=== PATIENT | female | born 1990 | race Caucasian/White ===

== ENCOUNTER 2017-02-03 20:34 | Emergency (ER) | payer OTHER ==
[2017-02-03] MEDS ORDERED: HYDROcod/ACETAM 5/325 MG TABLET PO STA (21:51)
[2017-02-03] MEDS ORDERED: HYDROcod/ACETAM 5/325 MG TABLET ONE (21:54)
== END 2017-02-03 22:04 | disposition home or self-care (01) ==
DX: S62.615A Displaced fracture of proximal phalanx of left ring finger, initial encounter for closed fracture (principal); W19.XXXA Unspecified fall, initial encounter; Y93.51 Activity, roller skating (inline) and skateboarding; Y92.410 Unspecified street and highway as the place of occurrence of the external cause
CPT/HCPCS: 29130; 73130; 99283; A9270

== ENCOUNTER 2018-05-25 18:07 | Emergency (ER) | payer OTHER ==
[2018-05-25 18:16] VITALS: BP 102/71
== END 2018-05-25 19:55 | disposition left against medical advice (07) ==
LOC: ED 18:07
DX: Z53.21 Procedure and treatment not carried out due to patient leaving prior to being seen by health care provider (principal)

== ENCOUNTER 2018-07-31 12:13 | Outpatient (CLI) | payer OTHER ==
[2018-07-31 12:36] LABS: BASOPHILS # (AUTO) 0.1 10^3/uL (0.0-0.1); BASOPHILS % (AUTO) 0.8 %; EOSINOPHILS # (AUTO) 0.1 10^3/uL (0.0-0.7); HGB - HEMOGLOBIN 15.1 g/dL (12.0-16.0); LYMPHOCYTES # (AUTO) 1.6 10^3/uL (1.5-3.5); LYMPHOCYTES % (AUTO) 22.8 %; MEAN CORPUSCULAR HEMOGLOBIN 30.4 pg (27.0-31.0); MEAN CORPUSCULAR HGB CONC 35.4 g/dL (32.0-36.0); MEAN CORPUSCULAR VOLUME 85.8 fL (81.0-99.0); MONOCYTES # (AUTO) 0.5 10^3/uL (0.0-1.0); MONOCYTES % (AUTO) 6.6 %; NEUTROPHILS # (AUTO) 4.9 10^3/uL (1.5-6.6); NEUTROPHILS % (AUTO) 67.8 %; PLT - PLATELET COUNT 203 10^3/uL (130-450); RED BLOOD COUNT 4.97 10^6/uL (4.20-5.40); RED CELL DISTRIBUTION WIDTH 13.1 % (12.0-15.0); WHITE BLOOD COUNT 7.2 x10^3/uL (4.8-10.8)
[2018-07-31] MEDS ORDERED: IOPAMIDOL-300 50 ML VIAL ONE (12:44)
[2018-07-31] MEDS ORDERED: IOPAMIDOL-300 100 ML VIAL ONE (12:44)
[2018-07-31 12:54] LABS: ALBUMIN/GLOBULIN RATIO 1.6 (1.0-2.2); ALKALINE PHOSPHATASE 58 IU/L (42-121); ALT ALANINE AMINOTRANSFERASE 13 IU/L (10-60); AST ASPARTATE AMINOTRANSFERASE 13 IU/L (10-42); BILIRUBIN,TOTAL 0.6 mg/dL (0.2-1.0); BUN - BLOOD UREA NITROGEN 13 mg/dL (6-20); CALCIUM 9.7 mg/dL (8.5-10.3); CARBON DIOXIDE - CO2 26 mmol/L (21-32); CHLORIDE 101 mmol/L (101-111); CREATININE 0.8 mg/dL (0.4-1.0); GFR - MDRD 86 (>89); GLUCOSE 98 mg/dL (70-100); SODIUM 136 mmol/L (135-145); TOTAL PROTEIN 8.2 g/dL (6.7-8.2)
[2018-07-31 13:01] LABS: HCG,QUALITATIVE BLOOD NEGATIVE
[2018-07-31] MEDS ORDERED: IOPAMIDOL-300 50 ML VIAL PO ONE (14:04)
[2018-07-31] MEDS ORDERED: IOPAMIDOL-300 100 ML VIAL IVP ONE (14:04)
--- NOTE | 2018-07-31 15:08 | CT Report ---
Reason: PAIN Procedure Date: 07/31/2018 Accession Number: [id number] / [id number] Procedure: CT - Abdomen/Pelvis W/ CPT Code: FULL RESULT: EXAM: CT ABDOMEN AND PELVIS EXAM DATE: 07/31/2018 02:02 PM. CLINICAL HISTORY: Right lower quadrant pain. COMPARISONS: None. TECHNIQUE: Routine helical CT imaging was performed through the abdomen and pelvis. IV contrast: CE. Enteric contrast: No. Reconstructions: Coronal and sagittal. In accordance with CT protocol optimization, one or more of the following dose reduction techniques were utilized for this exam: automated exposure control, adjustment of mA and/or KV based on patient size, or use of iterative reconstructive technique. FINDINGS: Lung Bases: Unremarkable. Liver: Normal. No masses. Gallbladder/Bile Ducts: Unremarkable. Spleen: The spleen is enlarged measuring up to 14.4 cm in length. Pancreas: Normal. Adrenal Glands: Normal. Kidneys: Normal. No masses or hydronephrosis. Peritoneal Cavity/Bowel: Normal. No free fluid, free air or adenopathy. No masses or acute inflammatory process. The appendix is not visualized. Pelvic Organs: Normal. The bladder and visualized pelvic organs are within normal limits. Vasculature: No aneurysms or other significant abnormality. Bones: No significant abnormality. Other: None. IMPRESSION: 1. The appendix is not visualized but there are no secondary signs of acute appendicitis. 2. No bowel obstruction or inflammatory process associated with the bowel. 3. No free air or fluid in the abdomen or pelvis. [facility]
== END 2018-07-31 12:14 | disposition home or self-care (01) ==
LOC: DI 12:13
PROVIDERS: ATTEND Internal Medicine
DX: R10.2 Pelvic and perineal pain (principal); R10.31 Right lower quadrant pain
CPT/HCPCS: 36415; 74177; 80053; 84703; 85025; Q9967

== ENCOUNTER 2018-08-17 10:28 | Outpatient (CLI) | payer OTHER | END 2018-08-17 10:29 | disposition home or self-care (01) | LOC: LAB.R 10:28 | PROVIDERS: ATTEND Obstetrics & Gynecology | DX: N76.0 Acute vaginitis (principal) | CPT/HCPCS: 87480; 87510; 87660 ==

== ENCOUNTER 2019-06-14 14:56 | Outpatient (CLI) | payer OTHER ==
--- NOTE | 2019-06-14 15:57 | XRAY Report ---
Reason: PAIN IN LEFT WRIST Procedure Date: 06/14/2019 Accession Number: [id number] / [id number] Procedure: XR - Wrist 4 View LT CPT Code: FULL RESULT: EXAM: LEFT WRIST RADIOGRAPHY EXAM DATE: 06/14/2019 03:14 PM. CLINICAL HISTORY: PAIN IN LEFT WRIST. COMPARISON: None. TECHNIQUE: 4 views. FINDINGS: Bones: No fracture or focal bony lesion. Joints: No evidence of dislocation. Soft Tissues: No unexpected soft tissue findings. IMPRESSION: No evidence of fracture or dislocation. [facility] The call report notification system was initiated by Dr. Yuri Alejandro at 03:55 PM on 06/14/2019.
== END 2019-06-14 14:57 | disposition home or self-care (01) ==
LOC: DI 14:56
PROVIDERS: ATTEND Internal Medicine
DX: M25.532 Pain in left wrist (principal)

== ENCOUNTER 2020-11-05 19:17 | Outpatient (CLI) | payer OTHER ==
--- NOTE | 2020-11-05 21:36 | Ultrasound Report ---
PROCEDURE: OB First Trimester w/TV INDICATIONS: TEST POSITIVE OUTSIDE/PRIOR DATING DATA: Last menstrual period (LMP): 10/04/2020. LMP-based estimated date of delivery (RAYO): 07/11/2021. TECHNIQUE: Real-time scanning was performed of the fetus and maternal pelvic organs, with image documentation. Endovaginal scanning was also performed to better visualize the fetus and maternal ovaries. COMPARISON: None FINDINGS: Embryo: A gestational sac is seen in expected position within the uterus measuring 10 x 4 x 7 mm, co mpatible with a gestational age of 5 weeks 3 days. A small yolk sac is noted. Measurement variability in dating: +/- 4 weeks by LMP, +/- 7 days by mean sac diameter (use before 6 weeks gestation if crown-rump length not able to be measured), +/- 5 days by crown-rump length (6-12 weeks gestation). Maternal organs: Ovaries are normal in size bilaterally. A left corpus luteal cyst is seen. Limited images through the kidneys demonstrate no hydronephrosis. IMPRESSION: Intrauterine is seen with gestational sac and yolk sac. Gestational sac size is compatible with a gestational age of 5 weeks 3 days. Findings were conveyed to the ordering provider by the rubber goods assembler at the time of the examination. Reviewed by: Zaid Younger MD on 11/05/2020 9:34 PM PST Approved by: Zaid Younger MD on 11/05/2020 9:34 PM PST Station ID: [id number]
== END 2020-11-05 19:18 | disposition home or self-care (01) ==
LOC: DI 19:17
PROVIDERS: ATTEND Nurse Practitioner Obstetrics & Gynecology
DX: Z32.01 Encounter for pregnancy test, result positive (principal)

== ENCOUNTER 2020-11-10 10:37 | Outpatient (CLI) | payer OTHER | END 2020-11-10 10:38 | disposition home or self-care (01) | LOC: LAB 10:37 | PROVIDERS: ATTEND Obstetrics & Gynecology | DX: Z33.2 Encounter for elective termination of pregnancy (principal); F32.9 Major depressive disorder, single episode, unspecified | CPT/HCPCS: 36415; 82306; 86901 ==

== ENCOUNTER 2020-11-19 16:35 | Outpatient (CLI) | payer OTHER ==
[2020-11-19 18:10] LABS: C. PNEUMONIAE- RESP PCR PANEL NOT DETECTED
== END 2020-11-19 16:36 | disposition home or self-care (01) ==
LOC: LAB 16:35
PROVIDERS: ATTEND Obstetrics & Gynecology
DX: Z01.812 Encounter for preprocedural laboratory examination (principal); O02.1 Missed abortion; Z20.822 Contact with and (suspected) exposure to COVID-19
CPT/HCPCS: 0202U; 36415; 86850; 86900; 86901

== ENCOUNTER 2020-11-20 11:00 | Day surgery (SDC) | payer OTHER ==
[~2020-11-20 11:00] MED LIST: CELECOXIB 100 MG CAPSULE PO ONE; GABAPENTIN 400 MG CAPSULE ONE
[2020-11-20] MEDS ORDERED: LACTATED RINGERS 1,000 ML IV ONE ×2 (11:38→13:34)
[2020-11-20] MEDS ORDERED: SCOPOLAMINE PATCH TOP ONE (11:50)
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
[2020-11-20] MEDS ORDERED: BUPIVACAINE 0.25% PF 30 ML VIAL ONE (12:29)
[2020-11-20] MEDS ORDERED: LIDOCAINE 2%-EPI 1:100000 20 ML MDV ONE (12:29)
[2020-11-20] MEDS ORDERED: fentaNYL 100 MCG/2 ML VIAL ONE ×2 (12:39→14:07)
[2020-11-20] MEDS ORDERED: PROPOFOL 200 MG/20 ML VIAL IVP ONE (12:39)
[2020-11-20] MEDS ORDERED: LIDOCAINE-MPF 2% 5 ML VIAL ONE (12:39)
[2020-11-20] MEDS ORDERED: ONDANSETRON 4 MG/2 ML VIAL ONE ×2 (12:39→14:07)
[2020-11-20] MEDS ORDERED: MIDAZOLAM 2 MG/2 ML VIAL ONE (12:40)
[2020-11-20] MEDS ORDERED: DEXAMETHASONE 4 MG/ML VIAL ONE (12:40)
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
[2020-11-20] MEDS ORDERED: LIDOCAINE 2%-EPI 1:100000 20 ML MDV SUBQ ONE (13:20)
[2020-11-20] MEDS ORDERED: BUPIVACAINE 0.25% PF 30 ML VIAL SUBQ ONE (13:20)
--- NOTE | 2020-11-20 13:34 | OPERATIVE REPORT ---
Operative Report - Other Other Information/Narrative: Date of service: 11/20/20 Preoperative diagnosis: missed at 6w Postoperative diagnosis: same Procedure: suction D&C Surgeon: Grover Delivery Helper: none Anesthesia: General Estimated Blood Loss: 20cc IV Fluids: 800cc Urine output: n/a Counts: correct sponge and instrument Complications: none apparent Disposition: stable to recovery room Prophylaxis: SCD to bilateral lower extremities Specimens: products of conception to pathology Findings: axial uterus Description of Procedure: Patient was brought to the operating room where she underwent general anesthesia. She was placed in low lithotomy in yellow-fin stirrups. A bimanual exam revealed an axial uterus. She was prepped and draped in the usual sterile fashion. A speculum was placed and a single-tooth tenaculum was applied to the anterior lip of the cervis. 10cc of mixed lidocaine and marcaine with epinepherine was injected in divided doses as a paracervical block. The cervix was easily sequentially dilated to 7mm. A suction curette size 7 was used to remove the products of conception after ensuring that suction pressure was less than 40mmHg. The tenaculum was removed. Hemostasis was excellent. The speculum was removed. The blood and betadine were washed from her body. She was returned to the supine position prior to waking.
[2020-11-20] MEDS ORDERED: ATROPINE ABBOJECT 1 MG/10 ML SYRINGE IVP PRN (13:58)
[2020-11-20] MEDS ORDERED: fentaNYL 100 MCG/2 ML VIAL IVP PRN (13:58)
[2020-11-20] MEDS ORDERED: NALOXONE 0.4 MG/ML VIAL IVP PRN (13:58)
[2020-11-20] MEDS ORDERED: ePHEDrine 50 MG/ML VIAL IVP PRN (13:58)
[2020-11-20] MEDS ORDERED: HYDROmorphone 0.5 MG/0.5 ML SYRINGE IVP PRN (13:58)
[2020-11-20] MEDS ORDERED: MORPHINE 2 MG/ML CARPUJECT IVP PRN (13:58)
[2020-11-20] MEDS ORDERED: ONDANSETRON 4 MG/2 ML VIAL IVP PRN (13:58)
[2020-11-20] MEDS ORDERED: LACTATED RINGERS 1,000 ML IV SCH (14:00)
[2020-11-20 14:53] VITALS: BP 102/53
--- NOTE | 2020-11-20 15:30 | ANESTHESIA POST OP EVALUATION ---
Anesthesia Post Eval - Post Anesthesia Eval Vitals: Last Vital Signs Temp 36.6 C 11/20/20 14:45 Pulse 69 11/20/20 14:45 Resp 15 11/20/20 14:45 BP 102/53 L 11/20/20 14:45 Pulse Ox 100 11/20/20 14:45 CV Function Including HR & BP: positive: Stable Pain Control: positive: Satisfactory Nausea & Vomiting: positive: Negative Mental Status: positive: Baseline Respiratory Status: Airway Patent Hydration Status: Satisfactory Anesthesia Complications: positive: None
== END 2020-11-20 11:01 | disposition home or self-care (01) ==
LOC: SDS 11:00
PROVIDERS: ATTEND Obstetrics & Gynecology
PROC: 10D17Z9 Manual Extraction of Products of Conception, Retained, Via Natural or Artificial Opening (ICD-10-PCS; principal; 2020-11-20 12:00)
DX: O02.1 Missed abortion (principal); J45.909 Unspecified asthma, uncomplicated; F32.9 Major depressive disorder, single episode, unspecified; F41.9 Anxiety disorder, unspecified; F43.10 Post-traumatic stress disorder, unspecified; Z87.891 Personal history of nicotine dependence; E66.3 Overweight; Z72.89 Other problems related to lifestyle
CPT/HCPCS: 59820; A9270; J3490; J7120

== ENCOUNTER 2020-11-25 08:00 | Outpatient (CLI) | payer OTHER ==
[2020-11-26 00:45] LABS: TRICHOMONAS VAGINALIS DNA NEGATIVE (NEGATIVE)
== END 2020-11-25 23:59 | disposition home or self-care (01) ==
LOC: LAB.R 08:00
PROVIDERS: ATTEND Obstetrics & Gynecology
DX: Z11.3 Encounter for screening for infections with a predominantly sexual mode of transmission (principal)
CPT/HCPCS: 87491; 87591; 87661

== ENCOUNTER 2021-10-04 19:59 | Emergency (ER) | payer OTHER ==
[2021-10-04] MEDS ORDERED: SODIUM CHLORIDE 0.9% 1,000 ML IV STA (20:32)
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
[2021-10-04 20:50] LABS: BASOPHILS % (AUTO) 0.6 %; EOSINOPHILS # (AUTO) 0.2 10^3/uL (0.0-0.7); EOSINOPHILS % (AUTO) 3.3 %; HCT - HEMATOCRIT 40.1 % (37.0-47.0); LYMPHOCYTES # (AUTO) 1.2 10^3/uL (1.5-3.5); LYMPHOCYTES % (AUTO) 16.8 %; MEAN CORPUSCULAR HEMOGLOBIN 31.3 pg (27.0-31.0); MEAN CORPUSCULAR HGB CONC 34.9 g/dL (32.0-36.0); MEAN CORPUSCULAR VOLUME 89.7 fL (81.0-99.0); MEAN PLATELET VOLUME 10.2 fL (7.9-10.8); MONOCYTES # (AUTO) 0.7 10^3/uL (0.0-1.0); MONOCYTES % (AUTO) 9.6 %; NEUTROPHILS % (AUTO) 69.6 %; PLT - PLATELET COUNT 211 10^3/uL (130-450); RED BLOOD COUNT 4.47 10^6/uL (4.20-5.40); RED CELL DISTRIBUTION WIDTH 11.7 % (12.0-15.0); WHITE BLOOD COUNT 7.2 x10^3/uL (4.8-10.8)
[2021-10-04 21:00] LABS: CALCIUM 9.5 mg/dL (8.5-10.3); CREATININE 0.8 mg/dL (0.4-1.0)
[2021-10-04 21:24] VITALS: BP 113/57
[2021-10-04 21:45] LABS: B. PARAPERTUSSIS- RESP PCR PAN NOT DETECTED; B. PERTUSSIS- RESP PCR PANEL NOT DETECTED; C. PNEUMONIAE- RESP PCR PANEL NOT DETECTED; CORONAVIRUS 229E-RESP PCR NOT DETECTED; CORONAVIRUS HKU1-RESP PCR NOT DETECTED; CORONAVIRUS NL63-RESP PCR NOT DETECTED; CORONAVIRUS OC43-RESP PCR NOT DETECTED; HUMAN METAPNEUMOVIRUS NOT DETECTED; INFLUENZA A- RESP PCR PANEL NOT DETECTED; INFLUENZA B - RESP PCR PANEL NOT DETECTED; M. PNEUMONIAE- RESP PCR PANEL NOT DETECTED; PARAINFLUENZA VIRUS 1 NOT DETECTED; PARAINFLUENZA VIRUS 2 NOT DETECTED; PARAINFLUENZA VIRUS 3 NOT DETECTED; PARAINFLUENZA VIRUS 4 NOT DETECTED; RHINOVIRUS/ENTEROVIRUS DETECTED; RSV- RESP PCR PANEL NOT DETECTED; SARS-CoV-2 -RESP PCR PANEL NOT DETECTED
== END 2021-10-04 21:54 | disposition home or self-care (01) ==
LOC: ED 19:59
DX: B34.8 Other viral infections of unspecified site (principal)
CPT/HCPCS: 0202U; 36415; 80048; 85025; 93005; 99283; 99284

== ENCOUNTER 2022-07-15 09:22 | Outpatient (CLI) | payer OTHER ==
[2022-07-15 16:12] LABS: BASOPHILS % (AUTO) 0.7 %; EOSINOPHILS # (AUTO) 0.1 10^3/uL (0.0-0.7); EOSINOPHILS % (AUTO) 1.5 %; HCT - HEMATOCRIT 41.7 % (37.0-47.0); HGB - HEMOGLOBIN 14.1 g/dL (12.0-16.0); LYMPHOCYTES # (AUTO) 1.3 10^3/uL (1.5-3.5); MEAN CORPUSCULAR HEMOGLOBIN 30.3 pg (27.0-31.0); MEAN CORPUSCULAR HGB CONC 33.8 g/dL (32.0-36.0); MEAN CORPUSCULAR VOLUME 89.7 fL (81.0-99.0); MEAN PLATELET VOLUME 11.2 fL (7.9-10.8); MONOCYTES # (AUTO) 0.4 10^3/uL (0.0-1.0); MONOCYTES % (AUTO) 6.6 %; NEUTROPHILS # (AUTO) 4.3 10^3/uL (1.5-6.6); NEUTROPHILS % (AUTO) 69.9 %; PLT - PLATELET COUNT 221 10^3/uL (130-450); RED BLOOD COUNT 4.65 10^6/uL (4.20-5.40); RED CELL DISTRIBUTION WIDTH 12.4 % (12.0-15.0); WHITE BLOOD COUNT 6.1 x10^3/uL (4.8-10.8)
[2022-07-15 16:19] LABS: BILIRUBIN,URINE NEGATIVE (NEGATIVE); GLUCOSE, URINE (UA) NEGATIVE (NEGATIVE); KETONES,URINE (UA) NEGATIVE (NEGATIVE); LEUKOCYTE ESTERASE, URINE NEGATIVE (NEGATIVE); NITRITE,URINE NEGATIVE (NEGATIVE); OCCULT BLOOD,URINE NEGATIVE (NEGATIVE); PH,URINE 7.5 PH (5.0-7.5); PROTEIN,URINE NEGATIVE (NEGATIVE); UROBILINOGEN,URINE 0.2 (NORMAL) E.U./dL (NORMAL)
[2022-07-15 16:31] LABS: CLARITY,URINE CLEAR (CLEAR)
[2022-07-15 16:54] LABS: ALBUMIN 4.4 g/dL (3.2-5.5); ALBUMIN/GLOBULIN RATIO 1.6 (1.0-2.2); ALKALINE PHOSPHATASE 50 IU/L (42-121); ALT ALANINE AMINOTRANSFERASE 18 IU/L (10-60); AST ASPARTATE AMINOTRANSFERASE 21 IU/L (10-42); BILIRUBIN,TOTAL 0.7 mg/dL (0.2-1.0); BUN - BLOOD UREA NITROGEN 13 mg/dL (6-20); CALCIUM 9.4 mg/dL (8.5-10.3); CARBON DIOXIDE - CO2 28 mmol/L (21-32); CHLORIDE 101 mmol/L (101-111); CHOLESTEROL 163 mg/dL; CREATININE 0.8 mg/dL (0.4-1.0); GFR - MDRD 84 (>89); GLUCOSE 90 mg/dL (70-100); HDL CHOLESTEROL 54 mg/dL; LDL CHOLESTEROL,CALCULATED 97 mg/dL; LDL/HDL RATIO 1.8 (<4.4); POTASSIUM 4.2 mmol/L (3.5-5.0); SODIUM 137 mmol/L (135-145); TOTAL PROTEIN 7.1 g/dL (6.7-8.2); TRIGLYCERIDES 61 mg/dL; VLDL CHOLESTEROL 12 mg/dL
== END 2022-07-15 23:59 | disposition home or self-care (01) ==
LOC: LAB.R 09:22
PROVIDERS: ATTEND Internal Medicine
DX: Z00.00 Encounter for general adult medical examination without abnormal findings (principal); F41.9 Anxiety disorder, unspecified; F32.A Depression, unspecified; G43.909 Migraine, unspecified, not intractable, without status migrainosus; N34.1 Nonspecific urethritis; B96.89 Other specified bacterial agents as the cause of diseases classified elsewhere; F43.10 Post-traumatic stress disorder, unspecified; Z13.6 Encounter for screening for cardiovascular disorders; R55 Syncope and collapse; Z79.899 Other long term (current) drug therapy; R35.0 Frequency of micturition
CPT/HCPCS: 80053; 80061; 81001; 81003; 83721; 84443; 85025; 87086

== ENCOUNTER 2022-11-11 08:00 | Outpatient (CLI) | payer OTHER ==
[2022-11-11 22:32] LABS: BACTERIAL VAGINOSIS DNA POSITIVE (NEGATIVE); CANDIDA GLABRATA DNA NEGATIVE (NEGATIVE); CANDIDA GROUP DNA NEGATIVE (NEGATIVE); CANDIDA KRUSEI DNA NEGATIVE (NEGATIVE); TRICHOMONAS VAGINALIS DNA NEGATIVE (NEGATIVE)
[2022-11-12 17:24] LABS: CHLAMYDIA TRACHOMATIS DNA NEGATIVE (NEGATIVE); NEISSERIA GONORRHOEAE DNA NEGATIVE (NEGATIVE)
== END 2022-11-11 23:59 | disposition home or self-care (01) ==
LOC: LAB.WC 08:00
PROVIDERS: ATTEND Nurse Practitioner
DX: N89.8 Other specified noninflammatory disorders of vagina (principal); Z11.3 Encounter for screening for infections with a predominantly sexual mode of transmission
CPT/HCPCS: 81514; 87491; 87591; 87661

== ENCOUNTER 2022-11-19 11:21 | Outpatient (CLI) | payer OTHER ==
--- NOTE | 2022-11-19 11:42 | XRAY Report ---
PROCEDURE: Chest 2 View X-Ray INDICATIONS: ACUTE COUGH/DYSPNEA TECHNIQUE: 2 views of the chest were acquired. COMPARISON: None FINDINGS: Surgical changes and devices: None. Lungs and pleura: No pleural effusions or pneumothorax. Lungs are clear. Mediastinum: Mediastinal contours are normal. Heart size is normal. Bones and chest wall: No suspicious bony abnormalities. Soft tissues appear unremarkable. IMPRESSION: No acute pulmonary process. Reviewed by: Alysia Lopez MD on 11/19/2022 11:41 AM [facility] Approved by: Alysia Lopez MD on 11/19/2022 11:41 AM [facility] Station ID: [id number]
== END 2022-11-19 11:22 | disposition home or self-care (01) ==
LOC: DI 11:21
PROVIDERS: ATTEND Internal Medicine
DX: R05.1 Acute cough (principal); R06.00 Dyspnea, unspecified

== ENCOUNTER 2022-11-26 07:03 | Outpatient (CLI) | payer OTHER ==
[2022-11-26 08:06] LABS: HCT - HEMATOCRIT 43.3 % (37.0-47.0); HGB - HEMOGLOBIN 14.2 g/dL (12.0-16.0); MEAN CORPUSCULAR HEMOGLOBIN 29.6 pg (27.0-31.0); MEAN CORPUSCULAR HGB CONC 32.8 g/dL (32.0-36.0); MEAN CORPUSCULAR VOLUME 90.2 fL (81.0-99.0); MEAN PLATELET VOLUME 10.3 fL (7.9-10.8); RED BLOOD COUNT 4.8 10^6/uL (4.20-5.40); RED CELL DISTRIBUTION WIDTH 12.5 % (12.0-15.0); WHITE BLOOD COUNT 7.6 x10^3/uL (4.8-10.8)
[2022-11-26 08:36] LABS: THYROID STIMULATING HORMONE 2.94 uIU/mL (0.34-5.60)
[2022-11-26 08:38] LABS: FREE T4 (FREE THYROXINE) 1.01 ng/dL (0.58-1.64)
[2022-11-26 08:42] LABS: FERRITIN 32.9 ng/mL (11.0-306.8)
--- NOTE | 2022-11-26 13:39 | Ultrasound Report ---
PROCEDURE: Pelvic w/Transvaginal INDICATIONS: FEMALE PELVIC PAIN TECHNIQUE: Real-time scanning was performed of the pelvic organs, with image documentation. Additional endovagi nal scanning was necessary due to incomplete visualization of the adnexal and endometrial structures by transabdominal scanning. COMPARISON: None. FINDINGS: Uterus: Uterus is anteverted and mildly enlarged in size at 9.8 x 4.8 x 6.3 cm. The myometrium is homogeneous. The endometrium measures 2.8 mm in combined thickness. Ovaries: The right ovary measures 2.6 x 1.8 x 1.9 cm, with a calculated ovarian volume of 4.8 cc. T he left ovary measures 4.1 x 1.7 x 1.9 cm, with a calculated ovarian volume of 6.9 cc. There is a foc us of decreased echogenicity within the left ovary measuring 19 x 12 x 14 mm. Other: No pathologic free abdominal or pelvic fluid. IMPRESSION: Small cyst versus prominent follicle within the left ovary. Reviewed by: Alysia Lopez MD on 11/26/2022 1:38 PM PST Approved by: Alysia Lopez MD on 11/26/2022 1:38 PM PST Station ID: [id number]
== END 2022-11-26 07:04 | disposition home or self-care (01) ==
LOC: DI 07:03
PROVIDERS: ATTEND Nurse Practitioner
DX: R10.2 Pelvic and perineal pain (principal); N83.202 Unspecified ovarian cyst, left side; N93.9 Abnormal uterine and vaginal bleeding, unspecified
CPT/HCPCS: 36415; 82728; 84439; 84443; 85027

== ENCOUNTER 2022-12-17 14:58 | Outpatient (CLI) | payer OTHER ==
--- NOTE | 2022-12-17 16:18 | XRAY Report ---
PROCEDURE: Foot 3 View RT INDICATIONS: TOE PAIN TECHNIQUE: 3 views of the foot were acquired. COMPARISON: None FINDINGS: Bones: No fractures or dislocations. No suspicious bony lesions. Soft tissues: No tibiotalar joint effusion. Achilles tendon appears normal. IMPRESSION: No acute fracture. No osseous lesion. If symptoms and/or clinical suspicion for pathology continue, f urther assessment with repeat plain films, or advanced imaging (e.g., CT, MRI, or bone scan) is recom mended for further assessment. Reviewed by: Glenda Link MD on 12/17/2022 4:16 PM PST Approved by: Glenda Link MD on 12/17/2022 4:16 PM PST Station ID: [id number]
== END 2022-12-17 14:59 | disposition home or self-care (01) ==
LOC: DI 14:58
PROVIDERS: ATTEND Internal Medicine
DX: M79.674 Pain in right toe(s) (principal); M79.676 Pain in unspecified toe(s)

== ENCOUNTER 2023-01-04 06:34 | Day surgery (SDC) | payer OTHER ==
[~2023-01-04 06:34] MED LIST changes: +CEFAZOLIN 2G/50ML 0.9% NS 2 GM/50 ML BAG IV ONE; -CELECOXIB 100 MG CAPSULE PO ONE; -GABAPENTIN 400 MG CAPSULE ONE
[2023-01-04] MEDS ORDERED: LACTATED RINGERS 1,000 ML IV ONE ×2 (06:45→11:58)
[2023-01-04 07:02] LABS: HCG UR QUAL NEGATIVE
[2023-01-04] MEDS ORDERED: BUPIVACAINE 0.25% PF 30 ML VIAL ONE (07:15)
[2023-01-04] MEDS ORDERED: LIDOCAINE MPF 2%-EPI 1:200000 20 ML VIAL ONE (07:16)
[2023-01-04] MEDS ORDERED: MANNITOL 20% 0 ML IV ONE (07:17)
[2023-01-04] MEDS ORDERED: METHYLENE BLUE 0.5% 50 MG/10 ML AMPULE ONE (07:19)
[2023-01-04] MEDS ORDERED: MORPHINE 2 MG/ML CARPUJECT IVP PRN (07:22)
[2023-01-04] MEDS ORDERED: fentaNYL 100 MCG/2 ML VIAL IVP PRN (07:22)
[2023-01-04] MEDS ORDERED: HYDROmorphone 0.5 MG/0.5 ML SYRINGE IVP PRN (07:22)
[2023-01-04] MEDS ORDERED: ATROPINE ABBOJECT 1 MG/10 ML SYRINGE IVP PRN (07:22)
[2023-01-04] MEDS ORDERED: ePHEDrine 50 MG/ML VIAL IVP PRN (07:22)
[2023-01-04] MEDS ORDERED: NALOXONE 0.4 MG/ML VIAL IVP PRN (07:22)
[2023-01-04] MEDS ORDERED: ONDANSETRON 4 MG/2 ML VIAL IVP PRN (07:22)
--- NOTE | 2023-01-04 07:22 | ANESTHESIA ---
Pre-Anesthesia VS, & Labs - Diagnosis abnormal menstrual bleeding, desires sterilization - Procedure lap assist hysterectomy, B salipngectomy Vital Signs: Temp Pulse Resp BP Pulse Ox O2 Flow Rate 36.7 C 87 18 126/72 98 01/04/23 06:46 01/04/23 06:46 01/04/23 06:46 01/04/23 06:46 01/04/23 06:46 Height: 5 ft 7 in Weight (kg): 101.15 kg Body Mass Index: 34.9 BMI Classification: Obese - NPO >8 hours - Is Patient ?: No Home Medications and Allergies Home Medications: Ambulatory Orders Ascorbic Acid [Vitamin C] 250 mg PO DAILY 12/31/22 Propranolol ER [Inderal LA] 60 mg PO DAILY 12/31/22 lamoTRIgine [Lamictal Xr] 50 mg PO DAILY 12/31/22 clonazePAM [Clonazepam] 0.5 mg PO TID 05/25/18 ARIPiprazole [Abilify] 5 mg PO DAILY 11/20/20 Baclofen 20 mg PO TID 11/20/20 Ascorbic Acid [Vitamin C] 250 mg PO DAILY 12/31/22 Propranolol ER [Inderal LA] 60 mg PO DAILY 12/31/22 lamoTRIgine [Lamictal Xr] 50 mg PO DAILY 12/31/22 Allergies/Adverse Reactions: Allergies Allergy/AdvReac Type Severity Reaction Status Date / Time [facility]enesin [[facility] Allergy swelling Verified 10/04/21 20:20 of throat oxycodone AdvReac Nausea Verified 12/31/22 10:34 Anes History & Medical History - Anesthetic History Anesthesia Complications: reports: No previous complications Family history of Anesthesia Complications: Denies Family history of Malignant Hyperthermia: Denies - Medical History Cardiovascular: reports: None Pulmonary: reports: Asthma Gastrointestinal: reports: None Urinary: reports: Incontinence Musculoskeletal: reports: Chronic back pain Endocrine/Autoimmune: reports: None Blood Disorders: reports: None Skin: reports: None Smoking Status: Never smoker Psychosocial: reports: Cannabis (heavy cannabis user) - Surgical History Eyes Ears Nose Throat (EENT): reports: Tonsil/Adenoidectomy Gynecologic: reports: Dilation and currettage Orthopedic: reports: Other Exam General: Alert, Oriented x3, Cooperative Dental: WNL Mouth Openin Fingerbreadth Neck Mobility: Normal Mallampati classification: II Thyromental Distance: 4-6 cm Respiratory: Lungs clear Cardiovascular: Regular rate Plan Anesthesia Type: General Consent for Procedure(s) Verified and Reviewed: Yes Code Status: Attempt Resuscitation ASA classification: 2-Mild systemic disease Is this case an emergency?: No
[2023-01-04] MEDS ORDERED: MIDAZOLAM 2 MG/2 ML VIAL ONE (07:27)
[2023-01-04] MEDS ORDERED: DEXAMETHASONE 4 MG/ML VIAL ONE (07:27)
[2023-01-04] MEDS ORDERED: KETOROLAC 30 MG/ML VIAL ONE (07:27)
[2023-01-04] MEDS ORDERED: ACETAMINOPHEN 1,000 MG/100 ML 1,000 MG/100 ML BAG IV ONE (07:27)
[2023-01-04] MEDS ORDERED: PROPOFOL 200 MG/20 ML VIAL IVP ONE ×2 (07:27→07:28)
[2023-01-04] MEDS ORDERED: LACTATED RINGERS 1,000 ML IV SCH (08:00)
[2023-01-04] MEDS ORDERED: LIDOCAINE MPF 2%-EPI 1:200000 20 ML VIAL SUBQ ONE ×2 (08:28→10:51)
[2023-01-04] MEDS ORDERED: BUPIVACAINE 0.25% PF 30 ML VIAL SUBQ ONE ×2 (08:28→10:50)
[2023-01-04] MEDS ORDERED: fentaNYL 100 MCG/2 ML VIAL ONE (08:29)
[2023-01-04] MEDS ORDERED: HYDROmorphone 1 MG/ML CARPUJECT ONE (08:41)
[2023-01-04] MEDS ORDERED: KETAMINE 500 MG/10 ML VIAL ONE (08:47)
[2023-01-04] MEDS ORDERED: ROCURONIUM 50 MG/5 ML VIAL ONE (08:49)
[2023-01-04] MEDS ORDERED: METOPROLOL 5 MG/5 ML VIAL IVP ONE (08:52)
[2023-01-04] MEDS ORDERED: SUGAMMADEX 200 MG/2 ML VIAL IVP ONE (09:44)
[2023-01-04] MEDS ORDERED: LACTATED RINGERS 300 ML IV ONE (11:24)
[2023-01-04] MEDS ORDERED: ONDANSETRON 4 MG/2 ML VIAL ONE (11:35)
--- NOTE | 2023-01-04 11:56 | OPERATIVE REPORT ---
Operative Report - General Procedure Date: 01/04/23 Planned Procedure: Total laparoscopic hysterectomy, bilateral salpingectomy Pre-Op Diagnosis: Heavy menstrual bleeding, pelvic pain Procedure Performed: Total laparoscopic hysterectomy, bilateral salpingectomy, cystoscopy Post Op Diagnosis: Heavy menstrual bleeding, pelvic pain - Procedure Note Primary Surgeon: Bria Cuellar DO Secondary Surgeon: Manuel Vidal MD; assistance required for retraction and safe completion Anesthesia Provider: Robina Amaro CRNA Anesthesia Technique: General ET tube Pathology: Uterus with cervix, bilateral oviducts Estimated Blood Loss (mL): 400 Indications: Heavy menstrual bleeding, pelvic pain Findings: Normal appearing uterus, oviducts, ovaries Complications: None - Other Other Information/Narrative: Patient taken to OR where GETA obtained without difficulty. Placed in dorsal lithotomy position and prepped and draped in sterile fashion. [place] speculum placed in vagina and anterior lip of cervix grasped with single tooth tenaculum. Advincula Cotton Sampler uterine manipulator placed. Speculum and tenaculum removed. Attention then turned to abdomen where 5mm skin incision made in umbilical fold. Veress needle carefully introduced into peritoneal cavity. Intraperitoneal placement confirmed with drop test and drop in intraabdominal pressure with CO2 gas insufflation. Trocar and sleeve advanced without difficulty into abdomen where intraabdominal placement confirmed with laparoscope. Two additional 5mm incisions made in pelvis bilaterally and trocars introduced under direct visualization. 0.25% marcaine/2% lidocaine with epinephrine injection prior to skin incisions x3. Aforementioned findings noted. Right fallopian tube grasped and LigaSure device used for transection along mesosalpinx. This was repeated on the left fallopian tube. Tubes removed through left 5mm port. Ovarian ligament transected bilaterally with LigaSure. Hemostasis noted. Dissection was carried down to uterine arteries bilaterally with LigaSure. Anterior leaf of broad ligament and bladder flap was created with Ligasure. L hook cautery was used to amputate cervix. Hemostasis ensured. Uterus removed vaginally. Right port replaced with 10mm trocar to accomodate endostitch and suture. Vaginal cuff closed laparoscopically with stratafix alonso ture. Hemostasis noted. Pelvis irrigated and suctioned. Hemostasis at all dissection sites. Constantin Tomason used to close 10mm incision with 0-vicryl. Trocars removed under direct visualization. Pneumoperitoneum released. Umbilical trocar removed. 5mm incisions x3 were closed with 4-0 monocryl and dermabond. Cystoscopy then performed. Jets noted from ureteral orifices bilaterally. No bleeding, sutures or defects noted in bladder. Sponge, lap, needle, and instrument counts were correct x2. Patient taken to PACU in stable condition.
[2023-01-04] MEDS ORDERED: ACETAMINOPHEN 500 MG TABLET PO SCH (12:00)
[2023-01-04] MEDS ORDERED: SCOPOLAMINE PATCH TOP SCH (12:00)
[2023-01-04] MEDS: traMADol 50 MG TABLET PO SCH ×2 (14:07→15:54)
--- NOTE | 2023-01-04 15:36 | ANESTHESIA POST OP EVALUATION ---
Anesthesia Post Eval - Post Anesthesia Eval Vitals: Last Vital Signs Temp 36.7 C 01/04/23 15:30 Pulse 60 01/04/23 15:30 Resp 16 01/04/23 15:30 BP 122/62 01/04/23 15:30 Pulse Ox 97 01/04/23 15:30 O2 Flow Rate CV Function Including HR & BP: Stable Pain Control: Satisfactory Nausea & Vomiting: Negative Mental Status: Baseline Respiratory Status: Airway Patent Hydration Status: Satisfactory Anesthesia Complications: None
[2023-01-04] MEDS ORDERED: METOCLOPRAMIDE 10 MG/2 ML VIAL IVP PRN (15:45)
[2023-01-04] MEDS ORDERED: oxyCODONE 5 MG TABLET PO ONE (15:47)
[2023-01-04] MEDS ORDERED: KETOROLAC 30 MG/ML VIAL IVP SCH (16:00)
[2023-01-04 17:41] VITALS: BP 118/54
== END 2023-01-04 18:15 | disposition home or self-care (01) ==
LOC: SDS 06:34 → MS2 12:13 → SDS 18:15
PROVIDERS: ATTEND Obstetrics & Gynecology
PROC: 0UT74ZZ Resection of Bilateral Fallopian Tubes, Percutaneous Endoscopic Approach (ICD-10-PCS; 2023-01-04)
PROC: 0UT94ZZ Resection of Uterus, Percutaneous Endoscopic Approach (ICD-10-PCS; principal; 2023-01-04 09:45)
DX: N93.9 Abnormal uterine and vaginal bleeding, unspecified (principal); J45.909 Unspecified asthma, uncomplicated; E66.9 Obesity, unspecified; Z87.891 Personal history of nicotine dependence; Z68.34 Body mass index [BMI] 34.0-34.9, adult
CPT/HCPCS: 58571; 81025; A9270; J0131; J0690; J1170; J2765; J3490; J7120

== ENCOUNTER 2023-01-17 11:25 | Outpatient (CLI) | payer OTHER ==
[2023-01-17 11:53] LABS: HCT - HEMATOCRIT 42.8 % (37.0-47.0); HGB - HEMOGLOBIN 14.3 g/dL (12.0-16.0); MEAN CORPUSCULAR HGB CONC 33.4 g/dL (32.0-36.0); MEAN CORPUSCULAR VOLUME 89.7 fL (81.0-99.0); MEAN PLATELET VOLUME 10.2 fL (7.9-10.8); RED BLOOD COUNT 4.77 10^6/uL (4.20-5.40); RED CELL DISTRIBUTION WIDTH 12.3 % (12.0-15.0)
== END 2023-01-17 11:26 | disposition home or self-care (01) ==
LOC: LAB 11:25
PROVIDERS: ATTEND Obstetrics & Gynecology
DX: Z90.710 Acquired absence of both cervix and uterus (principal)
CPT/HCPCS: 36415; 85027

== ENCOUNTER 2023-01-21 15:07 | Outpatient (CLI) | payer OTHER ==
[2023-01-21 15:17] LABS: HCT - HEMATOCRIT 38.7 % (37.0-47.0); MEAN CORPUSCULAR HEMOGLOBIN 30.6 pg (27.0-31.0); MEAN CORPUSCULAR HGB CONC 33.6 g/dL (32.0-36.0); MEAN CORPUSCULAR VOLUME 91.1 fL (81.0-99.0); MEAN PLATELET VOLUME 10.1 fL (7.9-10.8); RED BLOOD COUNT 4.25 10^6/uL (4.20-5.40); RED CELL DISTRIBUTION WIDTH 12.3 % (12.0-15.0); WHITE BLOOD COUNT 8.9 x10^3/uL (4.8-10.8)
== END 2023-01-21 15:08 | disposition home or self-care (01) ==
LOC: LAB 15:07
PROVIDERS: ATTEND Obstetrics & Gynecology
DX: Z48.816 Encounter for surgical aftercare following surgery on the genitourinary system (principal)
CPT/HCPCS: 36415; 85027

== ENCOUNTER 2023-01-21 16:25 | Day surgery (SDC) | payer OTHER ==
[2023-01-21] MEDS ORDERED: MIDAZOLAM 2 MG/2 ML VIAL ONE ×2 (16:37→17:24)
[2023-01-21] MEDS ORDERED: ROCURONIUM 50 MG/5 ML VIAL ONE (16:37)
[2023-01-21] MEDS ORDERED: fentaNYL 100 MCG/2 ML VIAL ONE ×2 (16:37→17:50)
[2023-01-21] MEDS ORDERED: PROPOFOL 200 MG/20 ML VIAL IVP ONE (16:37)
[2023-01-21] MEDS ORDERED: SUCCINYLCHOLINE 200 MG/10 ML VIAL ONE (16:45)
[2023-01-21] MEDS ORDERED: CEFAZOLIN 2G/50ML 0.9% NS 2 GM/50 ML BAG IV ONE (16:46)
[2023-01-21] MEDS ORDERED: LACTATED RINGERS 1,000 ML IV ONE ×2 (16:59→19:14)
[2023-01-21] MEDS ORDERED: LIDOCAINE MPF 2%-EPI 1:200000 20 ML VIAL ONE (17:02)
[2023-01-21] MEDS ORDERED: BUPIVACAINE 0.25% PF 30 ML VIAL ONE (17:02)
--- NOTE | 2023-01-21 17:07 | ANESTHESIA ---
Pre-Anesthesia VS, & Labs - Diagnosis vaginal bleeding - Procedure diagnostic laparoscopy Vital Signs: Temp Pulse Resp BP Pulse Ox O2 Flow Rate 37 C 72 19 126/81 H 98 01/21/23 16:50 01/21/23 16:50 01/21/23 16:50 01/21/23 16:50 01/21/23 16:50 Height: 5 ft 7 in Weight (kg): 102 kg Body Mass Index: 35.2 BMI Classification: Obese - NPO Last Food Intake: 11am - Is Patient ?: No Home Medications and Allergies clonazePAM [Clonazepam] 0.5 mg PO TID 05/25/18 ARIPiprazole [Abilify] 5 mg PO DAILY 11/20/20 Baclofen 20 mg PO TID 11/20/20 Ascorbic Acid [Vitamin C] 250 mg PO DAILY 12/31/22 Propranolol ER [Inderal LA] 60 mg PO DAILY 12/31/22 lamoTRIgine [Lamictal Xr] 50 mg PO DAILY 12/31/22 Allergies/Adverse Reactions: Allergies Allergy/AdvReac Type Severity Reaction Status Date / Time guaifenesin [From Guiatuss] Allergy swelling Verified 10/04/21 20:20 of throat oxycodone AdvReac Nausea Verified 12/31/22 10:34 Anes History & Medical History - Anesthetic History Anesthesia Complications: reports: No previous complications - Medical History Cardiovascular: reports: None Pulmonary: reports: Asthma Gastrointestinal: reports: None Urinary: reports: None Neuro: reports: None Musculoskeletal: reports: None Endocrine/Autoimmune: reports: None Blood Disorders: reports: None Skin: reports: None Smoking Status: Never smoker Psychosocial: reports: Delusions, Anxiety, Cannabis (heavy use), Other (PTSD) - Surgical History Eyes Ears Nose Throat (EENT): reports: Tonsil/Adenoidectomy Gynecologic: reports: Hysterectomy (01/04/23) Orthopedic: reports: Other Exam General: Alert Dental: WNL Mouth Openin Fingerbreadth Neck Mobility: Normal Mallampati classification: II Thyromental Distance: 4-6 cm Mental/Cognitive Status: Alert/Oriented X3, Normal for patient Plan Anesthesia Type: General (RSI) Consent for Procedure(s) Verified and Reviewed: Yes Code Status: Attempt Resuscitation ASA classification: 2-Mild systemic disease Is this case an emergency?: Yes
[2023-01-21] MEDS ORDERED: ATROPINE ABBOJECT 1 MG/10 ML SYRINGE IVP PRN (17:19)
[2023-01-21] MEDS ORDERED: NALOXONE 0.4 MG/ML VIAL IVP PRN (17:19)
[2023-01-21] MEDS ORDERED: MORPHINE 2 MG/ML CARPUJECT IVP PRN (17:19)
[2023-01-21] MEDS ORDERED: fentaNYL 100 MCG/2 ML VIAL IVP PRN (17:19)
[2023-01-21] MEDS ORDERED: HYDROmorphone 0.5 MG/0.5 ML SYRINGE IVP PRN (17:19)
[2023-01-21] MEDS ORDERED: ONDANSETRON 4 MG/2 ML VIAL IVP PRN ×2 (17:19→19:10)
[2023-01-21] MEDS ORDERED: SCOPOLAMINE PATCH TOP ONE (17:21)
[2023-01-21 17:30] LABS: ALBUMIN 4.1 g/dL (3.2-5.5); ALBUMIN/GLOBULIN RATIO 1.5 (1.0-2.2); BILIRUBIN,TOTAL 0.6 mg/dL (0.2-1.0); CALCIUM 8.9 mg/dL (8.5-10.3); CREATININE 0.7 mg/dL (0.4-1.0); POTASSIUM 3.8 mmol/L (3.5-5.0); TOTAL PROTEIN 6.9 g/dL (6.7-8.2)
[2023-01-21] MEDS ORDERED: ONDANSETRON 4 MG/2 ML VIAL ONE (17:43)
[2023-01-21] MEDS ORDERED: DEXAMETHASONE 4 MG/ML VIAL ONE (17:43)
[2023-01-21] MEDS ORDERED: BUPIVACAINE 0.25% PF 30 ML VIAL SUBQ ONE ×2 (17:59)
[2023-01-21] MEDS ORDERED: LIDOCAINE 2%-EPI 1:100000 20 ML MDV SUBQ ONE ×2 (17:59)
[2023-01-21] MEDS ORDERED: LACTATED RINGERS 1,000 ML IV SCH (18:00)
[2023-01-21] MEDS ORDERED: SCOPOLAMINE PATCH TOP SCH (18:00)
[2023-01-21] MEDS ORDERED: HYDROmorphone 1 MG/ML CARPUJECT ONE (18:37)
[2023-01-21] MEDS ORDERED: SUGAMMADEX 200 MG/2 ML VIAL IVP ONE (18:38)
--- NOTE | 2023-01-21 19:16 | OPERATIVE REPORT ---
Operative Report - General Procedure Date: 01/21/23 Planned Procedure: Diagnostic laparoscopy Vaginal cuff repair Cystoscopy Pre-Op Diagnosis: Vaginal bleeding post hysterectomy Procedure Performed: Diagnostic laparoscopy Vaginal cuff repair Cystoscopy Post Op Diagnosis: Vaginal cuff defect - Procedure Note Primary Surgeon: Bria Cuellar DO Secondary Surgeon: Manuel Vidal MD; assistance required for retraction and safe completion Anesthesia Provider: Glendy Srinivasan CRNA Anesthesia Technique: General ET tube Pathology: None Estimated Blood Loss (mL): 40 Indications: Vaginal bleeding post hysterectomy Findings: Vaginal cuff bleeding Complications: None - Other Other Information/Narrative: Patient taken to OR where GETA obtained without difficulty. Placed in dorsal lithotomy position and prepped and draped in sterile fashion. 5mm vertical skin incision made in umbilical fold. Veress needle carefully introduced into peritoneal cavity. Intraperitoneal placement confirmed with drop test and drop in intraabdominal pressure with CO2 gas insufflation. Long trocar and sleeve advanced without difficulty into abdomen where intraabdominal placement confirmed with laparoscope. One additional 5mm incision made in right pelvis bilaterally and trocar introduced under direct visualization. 2% lidocaine/0.25% marcaine injection prior to skin incisions x2. No internal bleeding identified. Healing from hysterectomy well. Vaginal cuff appears intact intraabdominally. Attention then turned vaginally. Weighted speculum placed. Anterior wall retracted. Vaginal cuff with oozing. No brisk bleeding identified. Vaginal cuff reinforced along entire cuff. Angles identified and 0-Vicryl placed both angles. Figure of eight sutures interrupted placed along cuff with 0-Vicryl. Hemostasis noted. Cystoscopy performed. No sutures or defects noted in bladder. Bilateral ureteral jets visualized. Vaginal cuff inspected once more and hemostatic. Trocars removed. 5mm incisions closed with 4-0 Monocryl. Counts correct x2. Taken to recovery in stable condition.
[2023-01-21] MEDS ORDERED: ACETAMINOPHEN 1,000 MG/100 ML 1,000 MG/100 ML BAG IV ONE (19:18)
[2023-01-21] MEDS ORDERED: KETOROLAC 30 MG/ML VIAL IVP SCH (19:45)
[2023-01-21] MEDS ORDERED: traMADol 50 MG TABLET PO SCH (19:45)
[2023-01-21] MEDS ORDERED: KETOROLAC 15 MG/ML VIAL ONE (19:48)
[2023-01-21 20:23] VITALS: BP 126/77
--- NOTE | 2023-01-22 08:49 | ANESTHESIA POST OP EVALUATION ---
Anesthesia Post Eval - Post Anesthesia Eval Vitals: Last Vital Signs Temp 36.4 C L 01/21/23 20:15 Pulse 65 01/21/23 20:15 Resp 16 01/21/23 20:15 BP 126/77 01/21/23 20:15 Pulse Ox 99 01/21/23 20:15 O2 Flow Rate CV Function Including HR & BP: Stable Pain Control: Satisfactory Nausea & Vomiting: Negative Mental Status: Baseline Respiratory Status: Airway Patent Hydration Status: Satisfactory Anesthesia Complications: None
== END 2023-01-21 20:30 | disposition home or self-care (01) ==
LOC: SDS 16:25 → MS3 19:00 → SDS 20:30
PROVIDERS: ATTEND Obstetrics & Gynecology
PROC: 0UUG7JZ Supplement Vagina with Synthetic Substitute, Via Natural or Artificial Opening (ICD-10-PCS; principal; 2023-01-21 16:30)
DX: N99.820 Postprocedural hemorrhage of a genitourinary system organ or structure following a genitourinary system procedure (principal); E66.9 Obesity, unspecified; Z68.35 Body mass index [BMI] 35.0-35.9, adult; F41.9 Anxiety disorder, unspecified; Z48.816 Encounter for surgical aftercare following surgery on the genitourinary system
CPT/HCPCS: 36415; 57200; 80053; 85027; 86850; 86900; 86901; A9270; J0131; J0330; J0690; J1170; J3490; J7120

== ENCOUNTER 2023-08-13 00:30 | Emergency (ER) | payer OTHER, MEDICAID ==
--- NOTE | 2023-08-13 00:43 | ED Physician Documentation ---
PD HPI HEENT - Stated complaint Stated Complaint: THROAT PX - History obtained from History obtained from: Patient - Additional information Additional information: HPI from patient. Patient complains of 4 to 5 days of URI symptoms comprised of bilateral sinus pressure and congestion, sore throat with odynophagia. Has not been taking her temperature at home, but has been experiencing chills and sweats. She also complains of generalized fatigue in this timeframe. Review of Systems Constitutional: reports: Chills, Fatigue, Sweats Ears: denies: Ear pain Nose: reports: Congestion, Sinus pressure / pain Throat: reports: Sore throat Respiratory: reports: Cough. denies: Dyspnea PD PAST MEDICAL HISTORY - Past Medical History Cardiovascular: None Respiratory: Asthma Neuro: None Endocrine/Autoimmune: None GI: None OLIVE GRADER: None : None HEENT: None Psych: Depression, Anxiety, Post traumatic stress disorder Musculoskeletal: None Derm: None - Past Surgical History Past Surgical History: Yes Ortho: Other /OLIVE GRADER: Hysterectomy (01/04/23) HEENT: Tonsil/Adenoidectomy - Present Medications Home Medications: Ambulatory Orders Medication Instructions Recorded Confirmed clonazePAM [Clonazepam] 0.5 mg PO TID 05/25/18 08/13/23 ARIPiprazole [Abilify] 5 mg PO DAILY 11/20/20 08/13/23 Baclofen 20 mg PO TID 11/20/20 08/13/23 Ascorbic Acid [Vitamin C] 250 mg PO DAILY 12/31/22 08/13/23 Propranolol ER [Inderal LA] 60 mg PO DAILY 12/31/22 08/13/23 lamoTRIgine [Lamictal Xr] 50 mg PO DAILY 12/31/22 08/13/23 - Allergies Allergies/Adverse Reactions: Allergies Allergy/AdvReac Type Severity Reaction Status Date / Time guaifenesin [From Guiatuss] Allergy swelling Verified 08/13/23 00:46 of throat oxycodone AdvReac Nausea Verified 08/13/23 00:46 - Social History Does the pt smoke?: No Smoking Status: Never smoker Does the pt drink ETOH?: No Does the pt have substance abuse?: No - Immunizations Immunizations are current?: Yes - POLST Patient has POLST: No PD ED PE NORMAL - Vitals Vital signs reviewed: Yes - General General: Alert and oriented X 3, No acute distress, Well developed/nourished - HEENT HEENT: Moist mucous membranes, Other (mild posterior o/p erythema without edema or exudate) - Neck Neck: Supple, no meningeal sign - Respiratory Respiratory: No respiratory distress, Clear bilaterally Results - Vitals Vitals: Vital Signs - 24 hr 08/13/23 08/13/23 00:43 02:41 Temperature 35.1 C L Heart Rate 88 70 Respiratory 18 18 Rate Blood Pressure 121/50 L 101/67 O2 Saturation 99 98 Oxygen O2 Source Room air - Labs Labs: Laboratory Tests 08/13/23 08/13/23 01:10 01:10 Nasal Adenovirus (PCR) NOT DETECTED Nasal B. parapertussis DNA (PCR) NOT DETECTED Nasal Coronavir 229E PCR NOT DETECTED Nasal Coronavir HKU1 PCR NOT DETECTED Nasal Coronavir NL63 PCR NOT DETECTED Nasal Coronavir OC43 PCR NOT DETECTED Nasal Enterovir/Rhinovir PCR NOT DETECTED Nasal Influenza B PCR NOT DETECTED Nasal Influenza A PCR NOT DETECTED Nasal Parainfluen 1 PCR NOT DETECTED Nasal Parainfluen 2 PCR NOT DETECTED Nasal Parainfluen 3 PCR NOT DETECTED Nasal Parainfluen 4 PCR NOT DETECTED Nasal RSV (PCR) NOT DETECTED Nasal B.pertussis DNA PCR NOT DETECTED Nasal C.pneumoniae (PCR) NOT DETECTED Shoaib Human Metapneumo PCR NOT DETECTED Nasal M.pneumoniae (PCR) NOT DETECTED Nasal SARS-CoV-2 (PCR) NOT DETECTED Group A Strep Rapid Negative PD Medical Decision Making - ED course Complexity details: reviewed results, re-evaluated patient, considered differential, d/w patient ED course: Patient is given 10 mg p.o. Decadron for its anti-inflammatory effect (specifically to help with the discomfort of her pharyngitis). Rapid strep result is negative. Respiratory PCR panel is negative for viruses tested. Results reviewed with patient, return precautions reviewed as well. Suspect viral URI. Departure - Departure Disposition: 01 Home, Self Care Clinical Impression: Viral upper respiratory infection Condition: Good Instructions: ED Upper Resp Infec No Abx Tx Follow-Up: Natalee Connors MD [Primary Care Provider] - Comments: Your rapid strep test was negative. The lab will now perform a culture on the throat swab; this is a more accurate test, but takes 1 or 2 days to return. If the culture comes back positive for strep, you should receive a phone call from this emergency department informing you of this result, and at that time an antibiotic can be called into your pharmacy of choice. You will not receive a phone call for a negative or inconclusive result. Your nasal swab was negative for the viruses that were tested on this panel ( including influenza, COVID, and several other viruses such as RSV). Nonetheless, your symptoms are suggestive of a viral upper respiratory infection (there are other viruses besides the ones that are tested on our nasal swab). It is safe to assume that you are contagious, and you should take proper precautions to minimize exposure to others. Discharge Date/Time: 08/13/23 02:42
[2023-08-13] MEDS ORDERED: DEXAMETHASONE 10 MG/ML VIAL PO STA (01:06)
[2023-08-13] MEDS ORDERED: CHERRY SYRUP 10 ML UDC PO ONE (01:06)
--- OUTSIDE RECORDS SUMMARY | 2023-08-13 01:09 | EXTERNAL MEDICAL SUMMARY RPT | Continuity of Care Document ---
Author Name Unknown Address [address] [place] [address] Phone Organization [facility] Address [address] [place] [address] Phone Care Team Providers Care Facility Mechanic Name Role Phone Luis F Garcia Unavailable Unavailable Allergies and Intolerances date description facility reaction severity 2023-07-04 10:14:24 [facility] (no reactio n) Severe Medications date description facility 2023-07-04 00:00 Fluconazole [facility] 2023-07-04 00:00 Cephalexin [facility] 2023-07-04 00:00 Prednisone [facility] Problems date description facility 2023-07-04 00:00 Allergic reaction to insect sti [facility] Social History date description facility 2023-07-04 00:00 Ex-smoker (finding) [facility] ital Vital Signs date measurement value units 2023-07-04 00:00 BMI 36.5 kg/m2 2023-07-04 00:00 BP_diastolic 62 mmHg 2023-07-04 00:00 BP_systolic 117 mmHg 2023-07-04 00:00 heart_rate 69 /min 2023-07-04 00:00 height_metric 172.72 cm 2023-07-04 00:00 height_standard 68 in 2023-07-04 00:00 o2_saturation 99 % 2023-07-04 00:00 respiration_rate 14 /min 2023-07-04 00:00 temperature_metric 36.89 C 2023-07-04 00:00 temperature_standard 98.4 F 2023-07-04 00:00 weight_metric 108.86 kg 2023-07-04 00:00 weight_standard 240 lb
[2023-08-13 01:31] LABS: RAPID STREP SCREEN Negative (Negative)
[2023-08-13 02:20] LABS: B. PARAPERTUSSIS- RESP PCR PAN NOT DETECTED; B. PERTUSSIS- RESP PCR PANEL NOT DETECTED; C. PNEUMONIAE- RESP PCR PANEL NOT DETECTED; CORONAVIRUS 229E-RESP PCR NOT DETECTED; CORONAVIRUS HKU1-RESP PCR NOT DETECTED; CORONAVIRUS NL63-RESP PCR NOT DETECTED; CORONAVIRUS OC43-RESP PCR NOT DETECTED; HUMAN METAPNEUMOVIRUS NOT DETECTED; INFLUENZA A- RESP PCR PANEL NOT DETECTED; INFLUENZA B - RESP PCR PANEL NOT DETECTED; M. PNEUMONIAE- RESP PCR PANEL NOT DETECTED; PARAINFLUENZA VIRUS 1 NOT DETECTED; PARAINFLUENZA VIRUS 2 NOT DETECTED; PARAINFLUENZA VIRUS 3 NOT DETECTED; PARAINFLUENZA VIRUS 4 NOT DETECTED; RHINOVIRUS/ENTEROVIRUS NOT DETECTED; RSV- RESP PCR PANEL NOT DETECTED; SARS-CoV-2 -RESP PCR PANEL NOT DETECTED
[2023-08-13 02:47] VITALS: BP 101/67; O2SAT 98
== END 2023-08-13 02:42 | disposition home or self-care (01) ==
LOC: ED 00:30
DX: J06.9 Acute upper respiratory infection, unspecified (principal); Z20.822 Contact with and (suspected) exposure to COVID-19
CPT/HCPCS: 87070; 87430; 87633; 99283; 99284; A9270

== ENCOUNTER 2023-10-18 20:02 | Emergency (ER) | payer MEDICAID, OTHER ==
[2023-10-18 20:44] LABS: BASOPHILS # (AUTO) 0.1 10^3/uL (0.0-0.1); BASOPHILS % (AUTO) 0.6 %; EOSINOPHILS # (AUTO) 0.3 10^3/uL (0.0-0.7); EOSINOPHILS % (AUTO) 3.5 %; HGB - HEMOGLOBIN 12.7 g/dL (12.0-16.0); LYMPHOCYTES # (AUTO) 2.2 10^3/uL (1.5-3.5); MEAN CORPUSCULAR HGB CONC 33.4 g/dL (32.0-36.0); MEAN CORPUSCULAR VOLUME 86.8 fL (81.0-99.0); MEAN PLATELET VOLUME 9.8 fL (7.9-10.8); MONOCYTES # (AUTO) 0.5 10^3/uL (0.0-1.0); MONOCYTES % (AUTO) 6.4 %; NEUTROPHILS # (AUTO) 4.9 10^3/uL (1.5-6.6); NEUTROPHILS % (AUTO) 61.2 %; PLT - PLATELET COUNT 228 10^3/uL (130-450); RED BLOOD COUNT 4.38 10^6/uL (4.20-5.40); RED CELL DISTRIBUTION WIDTH 11.9 % (12.0-15.0); WHITE BLOOD COUNT 7.9 x10^3/uL (4.8-10.8)
[2023-10-18 21:03] LABS: ALBUMIN 4.1 g/dL (3.2-5.5); ALBUMIN/GLOBULIN RATIO 1.6 (1.0-2.2); BILIRUBIN,TOTAL 0.3 mg/dL (0.2-1.0); CALCIUM 9.6 mg/dL (8.5-10.3); POTASSIUM 3.8 mmol/L (3.5-4.5); TOTAL PROTEIN 6.7 g/dL (6.4-8.9)
[2023-10-18 21:10] LABS: BILIRUBIN,URINE NEGATIVE (NEGATIVE); GLUCOSE, URINE (UA) NEGATIVE (NEGATIVE); KETONES,URINE (UA) NEGATIVE (NEGATIVE); LEUKOCYTE ESTERASE, URINE NEGATIVE (NEGATIVE); NITRITE,URINE NEGATIVE (NEGATIVE); OCCULT BLOOD,URINE NEGATIVE (NEGATIVE); PROTEIN,URINE NEGATIVE (NEGATIVE); UROBILINOGEN,URINE 0.2 (NORMAL) E.U./dL (NORMAL)
[2023-10-18 21:14] LABS: CLARITY,URINE CLEAR (CLEAR); HCG UR QUAL NEGATIVE
--- NOTE | 2023-10-18 21:55 | ED Physician Documentation ---
PD HPI ABD PAIN - Stated complaint Stated Complaint: ABD PX - Chief complaint Chief Complaint: Abd Pain - History obtained from History obtained from: Patient - Additional information Additional information: The patient comes to the emergency department chief complaint of lower abdominal pain for the last 2 weeks. She states that the first just felt like a cramping but has become more of a pain that shifts [id number] across her low abdomen now. She states it is most often on the left side though sometimes it feels suprapubic or right. It starts in the abdomen and then intensifies toward the back. She denies any dysuria but states that the dribbling of urine that she normally has is a little bit worse since this has started. No blood in her urine or stool. No change in her bowel habits. She states it does hurt when she strains. No vaginal symptoms. The patient has a history of a hysterectomy without salpingo-oophorectomy. She has a history of ovarian cysts as well. She has not had any other organ removal. She states she is otherwise fairly healthy. She has noticed times of feeling flushed over the last couple of weeks since the symptoms started and today, feels like she just cannot get warm. She also gets nauseated when the pain kicks up. No other complaints at this time. PD PAST MEDICAL HISTORY - Past Medical History Past Medical History: Yes Cardiovascular: None Respiratory: Asthma Neuro: None Endocrine/Autoimmune: None GI: None PROPERTY CARETAKER: None : Incontinence HEENT: None Psych: Depression, Anxiety, Post traumatic stress disorder Musculoskeletal: None Derm: None - Past Surgical History Past Surgical History: Yes Ortho: Other /PROPERTY CARETAKER: Hysterectomy HEENT: Tonsil/Adenoidectomy - Present Medications Home Medications: Ambulatory Orders Medication Instructions Recorded Confirmed clonazePAM [Clonazepam] 0.5 mg PO TID 05/25/18 08/13/23 ARIPiprazole [Abilify] 5 mg PO DAILY 11/20/20 08/13/23 Baclofen 20 mg PO TID 11/20/20 08/13/23 Ascorbic Acid [Vitamin C] 250 mg PO DAILY 12/31/22 08/13/23 Propranolol ER [Inderal LA] 60 mg PO DAILY 12/31/22 08/13/23 lamoTRIgine [Lamictal Xr] 50 mg PO DAILY 12/31/22 08/13/23 HYDROcod/ACETAM 5/325 [Newton 5/325] 1 - 2 tablet PO Q6H PRN #14 tablet 10/19/23 Ondansetron Odt [Zofran] 4 mg TL Q6H PRN #10 tablet 10/19/23 - Allergies Allergies/Adverse Reactions: Allergies Allergy/AdvReac Type Severity Reaction Status Date / Time guaifenesin [From Guiatuss] Allergy swelling Verified 10/18/23 20:09 of throat oxycodone AdvReac Nausea Verified 10/18/23 20:09 - Social History Does the pt smoke?: No Smoking Status: Never smoker Does the pt drink ETOH?: No Does the pt have substance abuse?: No - Immunizations Immunizations are current?: Yes - POLST Patient has POLST: No PD ED PE NORMAL - Vitals Vital signs reviewed: Yes - General General: Alert and oriented X 3, No acute distress, Well developed/nourished - HEENT HEENT: Atraumatic, PERRL, EOMI, Moist mucous membranes - Neck Neck: Supple, no meningeal sign - Cardiac Cardiac: RRR, No murmur - Respiratory Respiratory: No respiratory distress, Clear bilaterally - Abdomen Abdomen: Soft, Non distended, Other (Moderate tenderness palpation suprapubic area and left lower quadrant with mild tenderness palpation over right lower quadrant. No rebound or guarding.) - Derm Derm: Warm and dry - Extremities Extremities: No deformity - Neuro Neuro: Alert and oriented X 3 - Psych Psych: Normal mood, Normal affect Results - Vitals Vitals: Vital Signs - 24 hr 10/18/23 10/18/23 10/19/23 20:05 22:10 00:10 Temperature 36.5 C Heart Rate 82 70 67 Respiratory 16 20 18 Rate Blood Pressure 123/71 108/55 L 110/76 O2 Saturation 100 95 97 Oxygen O2 Source Room air - Labs Labs: Laboratory Tests 10/18/23 10/18/23 10/18/23 20:38 20:38 21:01 WBC 7.9 RBC 4.38 Hgb 12.7 Hct 38.0 MCV 86.8 MCH 29.0 MCHC 33.4 RDW 11.9 L Plt Count 228 MPV 9.8 Neut # (Auto) 4.9 Lymph # (Auto) 2.2 Rapides # (Auto) 0.5 Eos # (Auto) 0.3 Baso # (Auto) 0.1 Absolute Nucleated RBC 0.00 Nucleated RBC % 0.0 Sodium 138 Potassium 3.8 Chloride 103 Carbon Dioxide 29 Anion Gap 6.0 BUN 17 Creatinine 1.0 Estimated GFR (MDRD) 64 L Glucose 101 Calcium 9.6 Total Bilirubin 0.3 AST 13 ALT 13 Alkaline Phosphatase 65 Total Protein 6.7 Albumin 4.1 Globulin 2.6 Albumin/Globulin Ratio 1.6 Lipase 24 Urine Color YELLOW Urine Clarity CLEAR Urine pH 6.0 Ur Specific [place] 1.025 Urine Protein NEGATIVE Urine Glucose (UA) NEGATIVE Urine Ketones NEGATIVE Urine Occult Blood NEGATIVE Urine Nitrite NEGATIVE Urine Bilirubin NEGATIVE Urine Urobilinogen 0.2 (NORMAL) Ur Leukocyte Esterase NEGATIVE Ur Microscopic Review NOT INDICATED Urine Culture Comments NOT INDICATED Urine HCG, Qual 10/18/23 21:01 WBC RBC Hgb Hct MCV MCH MCHC RDW Plt Count MPV Neut # (Auto) Lymph # (Auto) Rapides # (Auto) Eos # (Auto) Baso # (Auto) Absolute Nucleated RBC Nucleated RBC % Sodium Potassium Chloride Carbon Dioxide Anion Gap BUN Creatinine Estimated GFR (MDRD) Glucose Calcium Total Bilirubin AST ALT Alkaline Phosphatase Total Protein Albumin Globulin Albumin/Globulin Ratio Lipase Urine Color Urine Clarity Urine pH Ur Specific [place] Urine Protein Urine Glucose (UA) Urine Ketones Urine Occult Blood Urine Nitrite Urine Bilirubin Urine Urobilinogen Ur Leukocyte Esterase Ur Microscopic Review Urine Culture Comments Urine HCG, Qual NEGATIVE - Rads (name of study) CT abdomen and pelvis Relevant Findings:: Final report received, See rad report (Ovarian cyst; otherwise unremarkable.) PD Medical Decision Making - ED course Complexity details: reviewed results, re-evaluated patient, considered differential, d/w patient ED course: The patient was worked up with labs and urinalysis, which were normal. I did also work her up with CT scan of the abdomen pelvis, Which did show a small ovarian cyst. The patient had ultimately decided to have analgesia, though she did initially declined this. She had 2 doses of Dilaudid 1 mg in the emergency department and reported that this did help her pain. I have discussed with her that the pain could be from an ovarian cyst, as well as from adhesions potentially from patient's hysterectomy. I have discussed symptomatic management at home as well as the usual indications for follow-up and return. Departure - Departure Disposition: 01 Home, Self Care Clinical Impression: Abdominal pain Qualifiers: Abdominal location: lower abdomen, unspecified Qualified Code(s): R10.30 - Lower abdominal pain, unspecified Ovarian cyst Qualifiers: Laterality: left Qualified Code(s): N83.202 - Unspecified ovarian cyst, left side Condition: Stable Instructions: ED Pelvic Pain [facility] Prescriptions: HYDROcod/ACETAM 5/325 [Newton 5/325] 1 - 2 tablet PO Q6H PRN #14 tablet PRN Reason: Pain Ondansetron Odt [Zofran] 4 mg TL Q6H PRN #10 tablet PRN Reason: Nausea / Vomiting Comments: Your laboratory studies and urinalysis look good tonight. Your CT scan has been read by the radiologist and does show a left ovarian cyst. You do not have a infection in your abdomen and your organs otherwise look good. It is possible that your pain is coming from the cyst; However, you must certainly also have scar tissue from your hysterectomy that has attached to adjacent structures and sometimes this can cause pain as well. If it becomes persistent or unbearable, you can talk to either your SAND WORKER or general surgery about having a camera put in and the scar tissue surgically broken up. For now, medication for pain and nausea has been prescribed and electronically transmitted to the [facility] pharmacy in [place], your pharmacy of choice on record. Please schedule a follow-up with your primary doctor to discuss further management or concerns. Forms: PCP List Discharge Date/Time: 10/19/23 01:55
[2023-10-18] MEDS ORDERED: iohexoL-300 100 ML VIAL IVP ONE (22:35)
[2023-10-18] MEDS ORDERED: ONDANSETRON 4 MG/2 ML VIAL IVP STA (23:15)
[2023-10-18] MEDS ORDERED: HYDROmorphone 1 MG/ML CARPUJECT IVP STA (23:15)
[2023-10-18] MEDS ORDERED: KETOROLAC 30 MG/ML VIAL IVP STA (23:15)
--- NOTE | 2023-10-18 23:24 | CT Report ---
PROCEDURE: ABDOMEN/PELVIS W INDICATIONS: LLQ abd pn CONTRAST: 100mL Omni 300 TECHNIQUE: After the administration of intravenous contrast, 5 mm thick sections acquired from the diaphragms to the symphysis. 5 mm thick coronal and sagittal reformats were acquired. For radiation dose reducti on, the following was used: automated exposure control, adjustment of mA and/or kV according to ramsey ent size. COMPARISON: 07/31/2018 FINDINGS: Image quality: Diagnostic. Lung bases and heart: Unremarkable. Liver: No solid mass. Gallbladder and biliary tree: Gallbladder is moderately contracted. No biliary ductal dilatation. Spleen: No splenomegaly. Pancreas: No pancreatic ductal dilation. Adrenals: No adrenal nodule. Kidneys and ureters: No hydronephrosis. No renal cystic lesion which requires follow up. No solid mas s. Bowel and peritoneum: No bowel distension. No pathologic free fluid. Normal appendix. Lymph nodes: No central or retroperitoneal adenopathy. Vessels: No infrarenal aortic aneurysm. PELVIS Reproductive organs: A 2.7 cm left ovarian/adnexal cyst. Otherwise, reproductive organs are unremarka ble as imaged. Bladder: No abnormal wall thickening, accounting for underdistension. Pelvic lymph nodes: No pelvic adenopathy by size criteria. Bones: No aggressive osseous abnormality. Postsurgical changes of the right hip. Other: No significant ventral or inguinal hernia. IMPRESSION: CT abdomen and pelvis without acute abnormalities to explain patient's symptoms. Small 2.7 cm left ov stacie/adnexal cyst. Consider further evaluation with pelvic ultrasound as clinically warranted. Normal appendix. Reviewed by: Obdulio Mayfield MD on 10/18/2023 11:22 PM PST Approved by: Obdulio Mayfield MD on 10/18/2023 11:22 PM PST Station ID: [id number]
[2023-10-19] MEDS ORDERED: HYDROmorphone 1 MG/ML CARPUJECT IVP STA (01:23)
[2023-10-19 02:26] VITALS: BP 110/76; O2SAT 97
== END 2023-10-19 01:55 | disposition home or self-care (01) ==
LOC: ED 20:02
DX: N83.202 Unspecified ovarian cyst, left side (principal)
CPT/HCPCS: 36415; 74177; 80053; 81003; 81025; 83690; 85025; 96374; 96376; 99284; J1170; Q9967; 81001; 87086